=== PATIENT | female | born 1935 | race Caucasian/White ===

== ENCOUNTER 2016-04-25 21:48 | Emergency (ER) | payer MEDICARE, BC ==
[2016-04-25] MEDS ORDERED: Morphine INJ* 4 MG/ML 1 ML CARPUJECT IV ONE ×2 (21:56→23:33)
[2016-04-25] MEDS ORDERED: Ondansetron INJ* 2 MG/ML VIAL ONE (22:03)
[2016-04-25 22:07] LABS: Hematocrit 37 % (35-47); Hemoglobin 12.2 g/dl (12.0-16.0); Mean Corpuscular HGB Conc 33 g/dl (31-36); Mean Corpuscular Hemoglobin 29 pg (27-31); Mean Corpuscular Volume 90 fL (80-97); Mean Platelet Volume 8 um3 (7.4-10.4); Red Blood Count 4.14 10^6/ul (4.0-5.4); Red Cell Distribution Width 16 % (10.5-15); White Blood Count 16.6 10^3/ul (3.5-10.8)
[2016-04-25 22:08] LABS: Comments Flag Yes
[2016-04-25 22:09] LABS: Add Diff/Slide Review? Slide Review Added
[2016-04-25] MEDS ORDERED: Ondansetron INJ* 2 MG/ML VIAL IV ONE (22:12)
[2016-04-25 22:22] LABS: Albumin 3.7 g/dL (3.2-5.2); BUN/Creatinine Ratio 21.4 (8-20); Calcium 9.1 mg/dL (8.6-10.3); EGFR African American 50.4 (>60); EGFR Non-African American 39.2 (>60); Globulin 3.4 g/dL (2-4); Potassium 4.5 mmol/L (3.5-5.0); Total Bilirubin 0.5 mg/dL (0.2-1.0); Total Protein 7.1 g/dL (6.4-8.9)
--- NOTE | 2016-04-25 22:50 | RAD ---
INDICATION: Right shoulder injury COMPARISON: None TECHNIQUE: Routine frontal and Y views were obtained. FINDINGS: There is a transverse fracture of the surgical neck with displacement and rotation of the humeral head. The humeral head is displaced one bone width lateral to the humeral shaft. No scapular fracture is seen. The AC joint is intact. The visualized right upper lobe is clear IMPRESSION: SURGICAL NECK FRACTURE WITH DISPLACED AND ROTATED HUMERAL HEAD
--- NOTE | 2016-04-25 22:54 | RAD ---
INDICATION: Fall. Fracture. COMPARISON: None TECHNIQUE: An AP view of the pelvis and AP views of the hip in neutral and abducted position were obtained FINDINGS: Bones: There is a subcapital fracture of the right femur. There is resultant coxa varus deformity. No other fractures are evident. Joint spaces: The hips articulate normally. The joint spaces are preserved. SI joints/symphysis: The SI joints and symphysis are intact. Other: None IMPRESSION: SUBCAPITAL FRACTURE RIGHT FEMUR
--- NOTE | 2016-04-25 22:56 | RAD ---
INDICATION: Traumatic right humeral fracture COMPARISON: None TECHNIQUE: AP and lateral views were obtained. FINDINGS: There is a displaced fracture through the surgical neck. The humeral head is displaced laterally and rotated. No other fractures are evident.. IMPRESSION: DISPLACED FRACTURE THROUGH THE SURGICAL NECK OF THE HUMERUS
--- NOTE | 2016-04-25 22:57 | RAD ---
INDICATION: Fall. Traumatic fractures of the humerus and right hip COMPARISON: Chest x-ray 2012 TECHNIQUE: PA and lateral dual-energy views were obtained. FINDINGS: Bones/Soft Tissues: There is a fracture through the surgical neck of the humerus described in a separate report. Cardiomediastinal: The correct silhouette is mildly enlarged. Lungs: There is mild hyperinflation with chronic interstitial change. Pleura: There are no pleural effusions. Other: None IMPRESSION: MILD HYPERINFLATION WITH CHRONIC INTERSTITIAL CHANGE
--- NOTE | 2016-04-26 00:05 | ED ---
Hany William Billy, scribed for Shubham Villanueva MD on 04/25/16 at 2205 . Adult Trauma - HPI Summary HPI Summary: Patient is a 80 year-old female coming to [facility] after a simple mechanical fall this evening. She states that she normally uses a cane, but tonight as she was trying to get into bed, she had a sudden onset of dizziness. She denies any LOC or head trauma. She denies any bloodthinner use. At this time in the ED, her only complaints are right shoulder and right leg pain. Severity 9/10. Pain is worse with any attempted movement of her RUE or RLE. - History of Current Complaint Chief Complaint: ED Stated Complaint: FALL Time Seen by Provider: 04/25/16 21:53 Hx Obtained From: Patient Mechanism of Injury: Fall Loss of Consciousness: no loss of consciousness Onset/Duration: Started Minutes Ago Onset of Pain: Immediate Onset Severity: Moderate Current Severity: Moderate Pain Intensity: 9 Pain Scale Used: 0-10 Numeric Location: Extremities Aggravating Factor(s): Movement Alleviating Factor(s): Nothing Associated Signs & Symptoms: Negative: Loss of Consciousness - Allergy/Home Medications Allergies/Adverse Reactions: Allergies Allergy/AdvReac Type Severity Reaction Status Date / Time No Known Allergies Allergy Verified 04/25/16 23:22 Home Medications: Home Medications Synthroid 04/25/16 [History] predniSONE TAB* [Deltasone TAB*] 5 mg PO DAILY 04/25/16 [History Confirmed 04/25] PMH/Surg Hx/FS Hx/Imm Hx Endocrine/Hematology History: Reports: Hx Thyroid Disease - hypothyroid, Hx Anemia Cardiovascular History: Denies: Other Cardiovascular Problems/Disorders Musculoskeletal History: Reports: Hx Arthritis, Hx Fibromyalgia Sensory History: Reports: Hx Contacts or Glasses - reading Opthamlomology History: Reports: Hx Contacts or Glasses - reading - Surgical History Surgery Procedure, Year, and Place: eye surgery-cataract. lumpectomy-right breast. Hx Anesthesia Reactions: No - Immunization History Date of Tetanus Vaccine: unsure Date of Influenza Vaccine: never Infectious Disease History: No Infectious Disease History: Denies: Traveled Outside the [place] in Last 30 Days - Family History Known Family History: Positive: Other Family History: Sister with Sjogren's, father with CVA and cardiac disease, mother with asthma. - Social History Substance Use Type: Reports: None Review of Systems Positive: Other - RLE and right shoulder pain Neurological: Other - dizziness All Other Systems Reviewed And Are Negative: Yes Physical Exam Triage Information Reviewed: Yes Vital Signs On Initial Exam: Initial Vitals Temp Pulse Resp BP Pulse Ox 96.2 F 74 20 173/69 95 04/25/16 21:49 04/25/16 21:49 04/25/16 21:49 04/25/16 21:49 04/25/16 21:49 Vital Signs Reviewed: Yes Appearance: Positive: Pain Distress - moderate discomfort, Thin Skin: Positive: Warm Head/Face: Positive: Normal Head/Face Inspection Eyes: Positive: SAIDA ENT: Positive: Hearing grossly normal Neck: Positive: Supple Respiratory/Lung Sounds: Positive: Clear to Auscultation, Breath Sounds Present , Other - obvious deformity to rt shoulder Cardiovascular: Positive: Normal Abdomen Description: Positive: Nontender, Soft Bowel Sounds: Positive: Present Musculoskeletal: Positive: Other - rt hip shortened and int rotated pulses 2+ distally rt shoulder with obvious deformity, pain with movement, good cap refill , pulses 2+ DISTALLY Neurological: Positive: Sensory/Motor Intact, Alert, Oriented to Person Place, Time Psychiatric: Positive: Affect/Mood Appropriate, Anxious Diagnostics - Vital Signs Vital Signs Temp Pulse Resp BP Pulse Ox 04/25/16 21:49 96.2 F 74 20 173/69 95 - Laboratory Lab Results: Lab Results 04/25/16 04/25/16 Range/Units 21:55 21:55 WBC 16.6 H (3.5-10.8) 10^3/ul RBC 4.14 (4.0-5.4) 10^6/ul Hgb 12.2 (12.0-16.0) g/dl Hct 37 (35-47) % MCV 90 (80-97) fL MCH 29 (27-31) pg MCHC 33 (31-36) g/dl RDW 16 H (10.5-15) % Plt Count 204 (150-450) 10^3/ul MPV 8 (7.4-10.4) um3 Neut % (Auto) 82.0 (38-83) % Lymph % (Auto) 7.3 L (25-47) % [place] % (Auto) 10.0 H (1-9) % Eos % (Auto) 0.1 (0-6) % Baso % (Auto) 0.6 (0-2) % Absolute Neuts (auto) 13.6 H (1.5-7.7) 10^3/ul Absolute Lymphs (auto) 1.2 (1.0-4.8) 10^3/ul Absolute Monos (auto) 1.7 H (0-0.8) 10^3/ul Absolute Eos (auto) 0 (0-0.6) 10^3/ul Absolute Basos (auto) 0.1 (0-0.2) 10^3/ul Absolute Nucleated RBC 0 10^3/ul Nucleated RBC % 0 Sodium 137 (133-145) mmol/L Potassium 4.5 (3.5-5.0) mmol/L Chloride 105 (101-111) mmol/L Carbon Dioxide 26 (22-32) mmol/L Anion Gap 6 (2-11) mmol/L BUN 28 H (6-24) mg/dL Creatinine 1.31 H (0.51-0.95) mg/dL Est GFR ( Amer) 50.4 (>60) Est GFR (Non-Af Amer) 39.2 (>60) BUN/Creatinine Ratio 21.4 H (8-20) Glucose 104 H (70-100) mg/dL Calcium 9.1 (8.6-10.3) mg/dL Total Bilirubin 0.50 (0.2-1.0) mg/dL AST 24 (13-39) U/L ALT 24 (7-52) U/L Alkaline Phosphatase 87 (34-104) U/L Total Protein 7.1 (6.4-8.9) g/dL Albumin 3.7 (3.2-5.2) g/dL Globulin 3.4 (2-4) g/dL Albumin/Globulin Ratio 1.1 (1-3) Result Diagrams: 04/25/16 21:55 04/25/16 21:55 Lab Statement: Any lab studies that have been ordered have been reviewed, and results considered in the medical decision making process. - Radiology Humerus XR Radiology Interpretation Completed By: Radiologist - DISPLACED FRACTURE THROUGH THE SURGICAL NECK OF THE HUMERUS Hip/Pelvis XR Radiology Interpretation Completed By: Radiologist - SUBCAPITAL FRACTURE RIGHT FEMUR CXR Radiology Interpretation Completed By: Radiologist - MILD HYPERINFLATION WITH CHRONIC INTERSTITIAL CHANGE Shoulder XR Radiology Interpretation Completed By: Radiologist - SURGICAL NECK FRACTURE WITH DISPLACED AND ROTATED HUMERAL HEAD Adult Trauma Course/Dx - Diagnoses Provider Diagnoses: Humeral head fracture, Hip fracture, right - Physician Notifications Discussed Care Of Patient With: Dr. Chaparro (orthopedics) @ 7008: will see patient in the ED. Dr. Chaparro (orthopedics) @ 0016: recommends transfer. Dr. Ibrahim ([facility]) @ 0026: accepts transfer. Instructed by Provider To: Transfer Reason For Transfer: Specialty or service not available at [facility] Patient not appropriate for [facility]. - Critical Care Time Critical Care Time: 30-74 min Discharge - Discharge Plan Condition: Fair Disposition: TRANS HIGHER LVL OF CARE FAC Referrals: Darshan Sutton MD [Primary Care Provider] - The documentation as recorded by the Hany morgan Billy accurately reflects the service I personally performed and the decisions made by me, Shubham Villanueva MD.
[2016-04-26 01:06] LABS: Urine Bacteria Absent (Absent); Urine Bilirubin Negative (Negative); Urine Glucose Negative (Negative); Urine Nitrite Negative (Negative)
[2016-04-26] MEDS ORDERED: Morphine INJ* 2 MG/ML 1 ML CARPUJECT ONE (01:28)
[2016-04-26] MEDS ORDERED: Morphine INJ* 2 MG/ML 1 ML CARPUJECT IV ONE (01:30)
[2016-04-26 01:34] VITALS: BP 150/63
--- NOTE | 2016-04-26 07:14 | RAD ---
Indication: Fall with RIGHT proximal humeral fracture. Comparison: April 25, 2016 RIGHT shoulder radiographs. Technique: Noncontrast CT RIGHT shoulder. Multiplanar reformation and 3-D osseous volume rendering. Report: Normal acromioclavicular joint alignment. Comminuted fracture through the surgical neck of the humerus extending to the anatomic neck and involving the greater tuberosity. Dominant humeral head fragment remains grossly concentrically located with the glenoid fossa with severe abduction/rotation. There is 1 shaft width anterior and lateral displacement of the dominant distal fragment relative to the humeral head fragments. 0.6 x 2.4 x 2.2 cm articular fragment is displaced anterior to the dominant portion of the humeral head. Associated hemarthrosis. No fracture of the scapula evident. Surrounding soft tissue edema. Limited images through the RIGHT lung demonstrate severe panlobular emphysema. IMPRESSION: Comminuted intra-articular fracture of the proximal humerus involving both the surgical and anatomic neck with displacement as described. The dominant articular moiety of the humeral head remains grossly concentrically located at the glenoid fossa with severe abduction/rotation.
--- NOTE | 2016-06-16 23:12 | PN ---
Hany William Billy, scribed for Shubham Villanueva MD on 04/26/16 at 0050 . Progress Note - Progress Note Note: CT UPPER EXTREMITY WITHOUT CONTRAST IMPRESSION: Acute comminuted fracture surgical neck right humerus with head fragment rotated and subluxed relative to glenoid process. Dominant distal fragment is displaced anteriorly and medially. Multiple intervening bone fragments without definite fragments within joint space. Small glenohumeral joint effusion. Thickened acromioclavicular ligaments. Emphysema. The documentation as recorded by the Hany morgan Billy accurately reflects the service I personally performed and the decisions made by Kay moreno David, MD.
== END 2016-04-26 01:12 | disposition short-term general hospital (02) ==
LOC: ED 21:48
DX: S42.211A Unspecified displaced fracture of surgical neck of right humerus, initial encounter for closed fracture (principal); S72.011A Unspecified intracapsular fracture of right femur, initial encounter for closed fracture; W19.XXXA Unspecified fall, initial encounter; Y92.9 Unspecified place or not applicable; E03.9 Hypothyroidism, unspecified; M79.7 Fibromyalgia
CPT/HCPCS: 36415; 71010; 80053; 81003; 81015; 85025; 96374; 96375; 96376; 99285; J2270; J2405

== ENCOUNTER 2017-09-14 15:19 | Inpatient (IN) | payer MEDICARE, BC ==
[2017-09-14] MEDS ORDERED: Nitroglycerin TAB 0.4 MG* 0.4 MG TAB SL ONE (16:04)
--- NOTE | 2017-09-14 16:16 | RAD ---
INDICATION: Chest pain COMPARISON: None. TECHNIQUE: Single AP portable view of the chest was obtained. FINDINGS: Image quality is compromised due to the relative inferiority of a portable chest x-ray. The heart and mediastinum exhibit normal size and contour. There is stable calcification overlying the arch of the aorta. The lungs appear hyperaerated and the AP projection. Otherwise the lungs are grossly clear. There is no evidence of a large pleural effusion. Visualized bones are normal for the patient's age. IMPRESSION: No radiographic evidence for acute cardiopulmonary abnormality on this portable chest x-ray.
[2017-09-14 16:18] LABS: ABS Basophils 0 10^3/ul (0-0.2); ABS Eosinophils 0.1 10^3/ul (0-0.6); ABS Lymphocytes 0.8 10^3/ul (1.0-4.8); ABS Monocytes 0.9 10^3/ul (0-0.8); ABS Neutrophils 4.7 10^3/ul (1.5-7.7); ABS Nucleated RBC 0 10^3/ul; Eosinophil % 1.9 % (0-6); Hematocrit 26 % (35-47); Hemoglobin 8.5 g/dl (12.0-16.0); Lymphocyte % 12.7 % (25-47); Mean Corpuscular HGB Conc 34 g/dl (31-36); Mean Corpuscular Hemoglobin 29 pg (27-31); Mean Corpuscular Volume 86 fL (80-97); Mean Platelet Volume 6.3 um3 (7.4-10.4); Nucleated Red Blood Cells % 0; Platelet Count 285 10^3/ul (150-450); Red Blood Count 2.97 10^6/ul (4.00-5.40); Red Cell Distribution Width 16 % (10.5-15); White Blood Count 6.6 10^3/ul (3.5-10.8)
[2017-09-14 16:30] LABS: EGFR Non-African American 43.2 (>60)
[2017-09-14] MEDS ORDERED: Ondansetron INJ* 2 MG/ML VIAL IV PRN (18:06)
[2017-09-14] MEDS ORDERED: Acetaminophen TAB* 325 MG PO PRN (18:06)
[2017-09-14] MEDS ORDERED: Aspirin 81 mg CHEW TAB* 81 MG TAB.CHEW PO ONE (18:09)
[2017-09-14] MEDS ORDERED: HYDROcodone/ACETAMIN 5-325 MG* 1 TAB PO PRN (18:10)
[2017-09-14] MEDS ORDERED: Morphine INJ* 2 MG/ML 1 ML CARPUJECT IV ONE (18:31)
[2017-09-14 19:29] LABS: Corrected Retic Count 0.7 % (0.5-1.5); Hematocrit 25 % (35-47); Hematocrit for Retic CNT 25 % (35-47); Hemoglobin 8.5 g/dl (12.0-16.0); RBC Retic Count 2.96 10^6/ul (4.6-6.2)
[2017-09-14] MEDS: Heparin VIAL(*) 5000 UNITS/ML VIAL (FIVE THOUSAND) SUBCUT SCH (23:12)
--- NOTE | 2017-09-14 23:22 | HP ---
CC: Dr. Johnson * HISTORY AND PHYSICAL: DATE OF ADMISSION: 09/14/17 PRIMARY CARE PROVIDER: Dr. Johnson. ATTENDING PHYSICIAN WHILE IN THE HOSPITAL: Dr. Donovan Arreola * (report dictated by Magan Collado NP). CHIEF COMPLAINT: Chest pain. HISTORY OF PRESENT ILLNESS: Ms. Shine is an 81-year-old female patient. She has a history of coronary artery disease in 2012. She had an NSTEMI with resulting cath, but no intervention, history of [place], again NSTEMI, history of rheumatoid arthritis, and anemia. She is presenting to the ED today stating that she has been having intermittent chest discomfort, nonexertional for the last 2 to 3 days. She has noticed that the discomfort 1 or 2 times did go into the shoulder. She says it was not becoming more frequent, but she was concerned because the intensity had increased. She denies any recent fevers or cough. There has been no recent trips or travel. Denies any associated shortness of breath, nausea, or any diaphoresis. She states that the discomfort just was not going away. She decided to come in to our emergency department today to be evaluated because of this discomfort. She says that she has not had any nausea, vomiting. No abdominal pain. There has been no black tarry stools or bloody stool. She denies any fevers or chills. She was evaluated in the ED because of the chest pain and it was also noted that her H and H were low. Because of these findings, we were asked to evaluate for admission. PAST MEDICAL HISTORY: Significant for: 1. Rheumatoid arthritis. 2. CAD. 3. Anemia. 4. History of NSTEMI. PAST SURGICAL HISTORY: 1. She has had an appendectomy. 2. Cardiac catheterization. HOME MEDICATIONS: Include: 1. Synthroid 75 mcg p.o. daily. 2. Hydrocodone 1 tab p.o. daily as needed. 3. Magnesium oxide 400 mg p.o. daily. 4. Aspirin 81 mg daily. ALLERGIES TO MEDICATIONS: Include no known drug allergies. FAMILY HISTORY: Mother had a history of asthma. Father had a history of CVA and [place]. SOCIAL HISTORY: The patient is a half a pack a day smoker. She does not drink alcohol. Surrogate decision maker is her . REVIEW OF SYSTEMS: There is no documented fever. She is denying having any significant weight change. There is no ear discharge. No rhinorrhea. No sore throat. No thyroid enlargement. There was chest pain per my HPI. There is no abdominal pain. There is no nausea, no vomiting. No dysuria. There is no frequency. There was no seizure. No loss of consciousness. No pruritus and no skin ulcerations. Review of 14 systems completed, all others negative. PHYSICAL EXAMINATION GENERAL: At this time, Ms. Shine is an 81-year-old female patient. She is sitting in the ED stretcher. She does not appear to be in any acute distress. VITAL SIGNS: Blood pressure 127/67, pulse 77, respirations were 18, O2 sat 99% , temperature 97.9. HEENT: Head: Atraumatic, normocephalic. Eyes: EOMs intact. Sclerae anicteric and not pale. Throat: Oral mucosa appears to be moist. No oropharyngeal erythema. NECK: Supple. LUNGS: Clear to auscultation bilaterally. No wheezes, rales, or rhonchi. HEART: Sounds S1, S2. Regular rate and rhythm. No murmurs, rubs, or gallops. ABDOMEN: Soft, flat, nontender. Bowel sounds are present. EXTREMITIES: Pulses were 2+ throughout. She again does have deformities from rheumatoid arthritis to the hands. She has got 5/5 strength. NEUROLOGIC: She is awake, alert, and oriented x3. She has no gross focal deficits. SKIN: Intact. DIAGNOSTIC STUDIES/LAB DATA: Her labs today revealing WBC of 6.6, RBC of 2.97 , hemoglobin of 8.5, hematocrit is 26, her hemoglobin normally a month ago was 10.5, platelet count 285. Sodium is 136, potassium 4.6, chloride 105, bicarb 25 , BUN 27, creatinine 1.20, glucose 81. Lactate 1. Calcium 8.4. Total bili 0.4 , AST 11, ALT 30. Troponin 0.01. She did have a chest x-ray obtained today, impression: No radiographic evidence for acute cardiopulmonary disease. She had an EKG obtained today, which does show a normal sinus rhythm with a right bundle branch block, rate of 75. She does have T wave inversions in V1, V2, V3, and biphasic in V4. Also, biphasic in lead II, inverted in aVF and lead III. When I reviewed to the previous EKG, she has had the inverted T wave in lead III and also in aVF. She had inverted T waves prior and actually biphasic T waves in V2, V1, V3, and V4, and also the right bundle branch block, so this is similar. Old medical records reviewed. ASSESSMENT AND PLAN: Ms. Shine is an 81-year-old female patient coming to the emergency department today with complaints of chest discomfort. We were asked to evaluate for admission. She will be admitted under observation status for: 1. Chest pain. I question if the chest pain is being exacerbated by the fact that her H and H are low and this should be causing some demand ischemia. Our plan will be to go ahead and cycle the troponins, get an EKG in the morning. I will place her on telemetry. She is on an aspirin. If the troponins go up, I will get a formal Cardiology consult. I will go ahead and give her a unit of blood to see if this helps and we will continue to follow. 2. Anemia. Again, I am sending off iron and B12 studies. In addition to this , her Hemoccult was negative and we will continue to follow. Check serial H and Hs. 3. History of rheumatoid arthritis. Continue supportive care. 4. Coronary artery disease. She is on aspirin therapy, continue. 5. Hypothyroidism. Continue her Synthroid. 6. DVT prophylaxis: I will order heparin subcu. 7. Code status. Full code. 8. Fluids, electrolytes and nutrition. She can have a heart-healthy diet. TIME SPENT: Time spent on the admission 60 minutes, greater than half the time was spent [id number] with the patient obtaining my history and physical; other half time was spent going over the plan of care with the patient and implementing plan of care. I did discuss the plan of care with my attending, Dr. Arreola, he is in agreement. MAGAN COLLADO, LESLEY [id number]/[facility] #: [id number] KASHIF
[2017-09-14 23:25] LABS: Hematocrit 24 % (35-47); Hemoglobin 8.2 g/dl (12.0-16.0)
[2017-09-15 01:05] LABS: Hematocrit 23 % (35-47); Hemoglobin 7.7 g/dl (12.0-16.0)
[2017-09-15] MEDS ORDERED: Levothyroxine TAB* 75 MCG TAB PO SCH (06:00)
[2017-09-15] MEDS: Heparin VIAL(*) 5000 UNITS/ML VIAL (FIVE THOUSAND) SUBCUT SCH (06:13)
[2017-09-15 07:23] LABS: ABS Basophils 0 10^3/ul (0-0.2); ABS Eosinophils 0.2 10^3/ul (0-0.6); ABS Lymphocytes 0.8 10^3/ul (1.0-4.8); ABS Monocytes 0.7 10^3/ul (0-0.8); ABS Neutrophils 3.6 10^3/ul (1.5-7.7); ABS Nucleated RBC 0 10^3/ul; Eosinophil % 3.2 % (0-6); Hematocrit 25 % (35-47); Hemoglobin 8.3 g/dl (12.0-16.0); Lymphocyte % 14.7 % (25-47); Mean Corpuscular HGB Conc 33 g/dl (31-36); Mean Corpuscular Hemoglobin 28 pg (27-31); Mean Corpuscular Volume 86 fL (80-97); Mean Platelet Volume 6.3 um3 (7.4-10.4); Nucleated Red Blood Cells % 0.1; Platelet Count 249 10^3/ul (150-450); Red Blood Count 2.94 10^6/ul (4.00-5.40); Red Cell Distribution Width 16 % (10.5-15); White Blood Count 5.3 10^3/ul (3.5-10.8)
[2017-09-15] MEDS ORDERED: Aspirin 81 mg CHEW TAB* 81 MG TAB.CHEW PO SCH (09:00)
[2017-09-15] MEDS ORDERED: Magnesium Oxide TAB* 400 MG PO SCH (09:00)
[2017-09-15 12:24] VITALS: BP 143/46
--- NOTE | 2017-09-16 22:38 | DS ---
DISCHARGE SUMMARY: DATE OF ADMISSION: 09/14/17 DATE OF DISCHARGE: 09/15/17 PRIMARY CARE PROVIDER: Dr. Johnson. ATTENDING PHYSICIAN WHILE IN THE HOSPITAL: Donovan Arreola MD * (dictated by Gwen Ortega NP) PRIMARY DIAGNOSES: 1. Chest pain, incomplete workup. 2. Anemia. SECONDARY DIAGNOSES: 1. Rheumatoid arthritis. 2. Coronary artery disease. 3. Anemia. 4. History of non-ST elevation myocardial infarction. DISCHARGE MEDICATIONS: New home medication: 1. Iron 325 mg p.o. daily. Continued home medications: 1. Synthroid 75 mcg p.o. daily. 2. Magnesium oxide 400 mg p.o. daily. 3. Aspirin 81 mg p.o. daily. 4. Hydrocodone 5/325 mg 0.5 tablets p.r.n. HISTORY OF PRESENT ILLNESS AND HOSPITAL COURSE: Ms. Shine is an 81-year-old female with a history of coronary artery disease in 2012. She had a non-STEMI resulting in a catheterization but no intervention, history of [place] again non- STEMI with rheumatoid arthritis and anemia. She presented to the emergency room complaining of intermittent chest pain, nonexertional, for the prior 2 to 3 days. She did notice that the pain and discomfort did 1 or 2 times go to her shoulder. She did report that the episodes were becoming more frequent and intensity had increased. She denied any recent cough, congestion, fever or chills. She denied any recent travel. Denied any associated shortness of breath, nausea, vomiting or diarrhea. She does report the discomfort was just not going away and so she came to the emergency room for further evaluation. She was evaluated in the ED because of her complaint of chest pain and she was found to have a low hemoglobin and hematocrit. We were asked to evaluate her for admission. Her initial hemoglobin and hematocrit on admission was 8.5 and 26, she did trend down to 7.7 and 23. Her BUN and creatinine were elevated at 27 and 1.0. While in the hospital, she was monitored on telemetry. On the morning of , the patient is requesting to sign out against medical advice without further workup. She did consent to receiving 1 unit of blood transfusion prior to leaving against medical advice. The patient was advised that she was anemic and that her workup for chest pain and anemia was not complete. She continues to wish to leave against medical advice. The patient was advised of risks of leaving including loss of current lifestyle, permanent disability, heart attack , hemorrhage and and the possibility of underlying cancer. The patient was advised we were unable to fully evaluate the cause of her anemia. The patient and were advised of all these risks. The patient continues to wish to leave AMA. At this time, the patient did sign out against medical advice. She was advised to follow up with her primary care physician. PHYSICAL EXAMINATION: Discharge vital signs: Temperature 98.4, heart rate 57, respirations 18, O2 saturation 100% on room air, blood pressure 143/46. The patient refused any further workup. She refused any further laboratory draws. Given her level of anemia, I did prescribe her iron 325 mg p.o. daily and advised the patient to follow up with her primary care physician. The patient was also advised to return to the emergency room with any rectal bleeding, black or tarry stools, vomiting blood, syncope, chest pain or any other worsening or concerning symptoms. The patient did verbalize understanding. Again, the patient left against medical advice. This is a summarization of her hospitalization. For further details, please see the entire medical record. TIME SPENT: Time spent on this discharge was approximately 45 minutes, greater than half that time was spent with the patient discussing discharge plans, discussing risk of leaving against medical advice. CONDITION AT THE TIME OF LEAVING AMA: Guarded. I have discussed with my attending, Dr. Donovan Arreola, and he is in agreement with this plan. GWEN ORTEGA, LESLEY [id number]/[facility] #: [id number] KASHIF
--- NOTE | 2017-09-18 06:52 | ED ---
Kapil William Tiffany, scribed for Raymundo Bonilla MD on 09/14/17 at 1607 . HPI Chest Pain - HPI Summary HPI Summary: 81 year old F BIB EMS to [facility] complains of intermittent left-sided chest pain since three days ago, worse since 1430 today. Pain does not radiate. The patient rates the pain 6/10 in severity. Symptoms aggravated by nothing. Symptoms alleviated by nothing. Patient denies BLE edema, BLE pain, cough, shortness of breath. No cardiac hx. Took Aspirin [employer]. - History of Current Complaint Chief Complaint: EDChestPainROMI Time Seen by Provider: 09/14/17 15:28 Hx Obtained From: Patient Onset/Duration: Started Days Ago - 3, Still Present, Worse Since - 1430 today Timing: Intermittent Chest Pain Radiates: No Aggravating Factor(s): Nothing Alleviating Factor(s): Nothing Associated Signs and Symptoms: Positive: Negative - BLE edema, BLE pain, cough, shortness of breath - Allergy/Home Medications Allergies/Adverse Reactions: Allergies Allergy/AdvReac Type Severity Reaction Status Date / Time No Known Allergies Allergy Verified 01/26/17 06:56 Home Medications: Home Medications Aspirin EC TAB* [Ecotrin EC Low Dose 81 MG*] 81 mg PO DAILY 09/14/17 [History Confirmed 09/14/17] HYDROcodone/ACETAMIN 5-325 MG* [[place] 5-325 TAB*] 0.5 tab PO DAILY PRN 09/14/17 [History Confirmed 09/14/17] Levothyroxine TAB* [Synthroid TAB*] 75 mcg PO DAILY 09/14/17 [History Confirmed 09/14/17] Magnesium Oxide TAB* [MagOx 400 TAB*] 400 mg PO DAILY 09/14/17 [History Confirmed 09/14/17] PMH/Surg Hx/FS Hx/Imm Hx Previously Healthy: No Endocrine/Hematology History: Reports: Hx Thyroid Disease - hypothyroid, Hx Anemia Denies: Hx Diabetes Cardiovascular History: Denies: Hx Hypertension, Hx Pacemaker/ICD, Other Cardiovascular Problems/ Disorders History: Denies: Hx Renal Disease Musculoskeletal History: Reports: Hx Arthritis, Hx Rheumatoid Arthritis, Hx Fibromyalgia Sensory History: Reports: Hx Contacts or Glasses - reading Denies: Hx Hearing Aid Opthamlomology History: Reports: Hx Contacts or Glasses - reading Psychiatric History: Denies: Hx Panic Disorder - Surgical History Surgery Procedure, Year, and Place: eye surgery-cataract. lumpectomy-right breast. RIGHT HIP SURGERY. RIGHT SHOULDER SURGERY Hx Anesthesia Reactions: No - Immunization History Date of Tetanus Vaccine: unsure Date of Influenza Vaccine: never Infectious Disease History: No Infectious Disease History: Denies: Traveled Outside the [place] in Last 30 Days - Family History Known Family History: Positive: Other Family History: Sister with Sjogren's, father with CVA and cardiac disease, mother with asthma. - Social History Alcohol Use: None Substance Use Type: Reports: None Smoking Status (MU): Light Every Day Tobacco Smoker Review of Systems Negative: Fever, Chills Negative: Erythema Negative: Sore Throat Positive: Chest Pain Negative: Shortness Of Breath, Cough Negative: Abdominal Pain, Vomiting, Nausea Negative: dysuria, hematuria Musculoskeletal: Negative - BLE pain Negative: Myalgia, Edema Negative: Rash Neurological: Negative - Dizziness All Other Systems Reviewed And Are Negative: Yes Physical Exam - Summary Physical Exam Summary: Constitutional: Well-developed, Well-nourished, Alert. (-) Distressed. She has no reproducible chest pain. Skin: Warm, Dry HENT: Normocephalic; Atraumatic Eyes: Conjunctiva normal Neck: Musculoskeletal ROM normal neck. (-) JVD, (-) Stridor, (-) Tracheal deviation Cardio: Rhythm regular, rate normal, Heart sounds normal; Intact distal pulses; The pedal pulses are 2+ and symmetric. Radial pulses are 2+ and symmetric. (-) Murmur Pulmonary/Chest wall: Effort normal. (-) Respiratory distress, (-) Wheezes, (-) Rales Abd: Soft, (-), epigastric tenderness, (-) Distension, (-) Guarding, (-) Rebound Musculoskeletal: (-) Edema Lymph: (-) Cervical adenopathy Neuro: Alert, Oriented x3 Psych: Mood and affect Normal Triage Information Reviewed: Yes Vital Signs On Initial Exam: Initial Vitals Temp Pulse Resp BP Pulse Ox 97.9 F 77 15 127/67 99 09/14/17 15:21 09/14/17 15:21 09/14/17 15:21 09/14/17 15:21 09/14/17 15:21 Vital Signs Reviewed: Yes Diagnostics - Vital Signs Vital Signs Temp Pulse Resp BP Pulse Ox 09/14/17 15:27 76 13 98 09/14/17 15:26 78 18 127/67 99 09/14/17 15:21 97.9 F 77 15 127/67 99 - Laboratory Result Diagrams: 09/14/17 16:05 09/14/17 16:05 Lab Statement: Any lab studies that have been ordered have been reviewed, and results considered in the medical decision making process. - Radiology CXR Radiology Interpretation Completed By: Radiologist - No radiographic evidence for acute cardiopulmonary abnormality on this portable chest x-ray. ED physician has reviewed this report. - EKG 1530 Cardiac Rate: NL - 75 bpm EKG Rhythm: Sinus Rhythm EKG Interpretation: New TWI V2V3. NonSTEMI Re-Evaluation - Re-Evaluation First Eval Re-Evaluation Time: 17:13 Comment: Patient expresses her wish to go home, does not want to be admitted. She was explained the risks of leaving. She understands. Second Eval Re-Evaluation Time: 17:18 Comment: patient changes her mind and would like to stay Chest Pain Course/Dx - Course Course Of Treatment: 81 year old F BIB EMS c/o intermittent left-sided chest pain for a couple of days. Bloodwork obtained. CXR negative. EKG shows new TVI in V2V3. Patient given nitroglycerin in ED course. Incomplete workup for chest pain. Tried to convince her to stay for her second troponin but she didn't want to. Discussed risks of leaving including disability and . Patient understands and wishes to go home. After speaking with her , patient has changed her mind and agrees to stay for admission. - Diagnoses Provider Diagnoses: Chest pain, unspecified Discharge - Sign-Out/Discharge Documenting (check all that apply): Discharge/Admit/Transfer - Admit - Discharge Plan Condition: Fair Disposition: ADMITTED TO [facility] Referrals: Gavin Johnson DO [Primary Care Provider] - The documentation as recorded by the eddie, Shavonne Dick SCRIBE accurately reflects the service I personally performed and the decisions made by me, Raymundo Bonilla MD.
== END 2017-09-15 13:12 | disposition left against medical advice (07) | DRG 812 ==
LOC: ED 15:19 → MEDTELE 17:42
PROVIDERS: ADMIT Internal Medicine; ATTEND Internal Medicine
PROC: 30233N1 Transfusion of Nonautologous Red Blood Cells into Peripheral Vein, Percutaneous Approach (ICD-10-PCS; principal; 2017-09-15)
DX: D64.9 Anemia, unspecified (principal); R07.9 Chest pain, unspecified; M06.9 Rheumatoid arthritis, unspecified; F17.210 Nicotine dependence, cigarettes, uncomplicated; E03.9 Hypothyroidism, unspecified; I25.10 Atherosclerotic heart disease of native coronary artery without angina pectoris; I45.10 Unspecified right bundle-branch block; M79.7 Fibromyalgia; I25.2 Old myocardial infarction; Z79.82 Long term (current) use of aspirin; Z90.49 Acquired absence of other specified parts of digestive tract; Z82.49 Family history of ischemic heart disease and other diseases of the circulatory system; Z82.5 Family history of asthma and other chronic lower respiratory diseases; Z82.3 Family history of stroke; Z98.49 Cataract extraction status, unspecified eye
CPT/HCPCS: 36415; 71045; 80053; 80061; 82272; 82607; 82728; 82746; 83010; 83036; 83540; 83550; 83605; 83615; 83921; 84484; 85014; 85018; 85025; 85045; 86850; 86870; 86880; 86900; 86901; 86905; 86906; 86922; 93005; 99284; 99406; A9270-GY; J2270; P9040